=== PATIENT | male | born 1955 | race Caucasian/White ===

== ENCOUNTER 2022-12-05 02:56 | Emergency (ER) | payer MEDICARE ==
[~2022-12-05] VITALS: Ht 177.8 cm; Wt 109.1 kg
[2022-12-05 03:30] VITALS: BP 127/84
[2022-12-05] MEDS ORDERED: dexamethasone sod phosphate 10mg/ml inj IM STA (08:17)
[2022-12-05] MEDS ORDERED: clindamycin 150mg capsule PO ONE (08:20)
[2022-12-05] MEDS ORDERED: HYDROcodone/acetaminophen 10/325mg tab PO ONE (08:20)
[2022-12-05] MEDS ORDERED: HYDR-3965 PO ×2 (08:25→08:28)
[2022-12-05] MEDS ORDERED: CLIN150C2 PO ×2 (08:25→08:30)
== END 2022-12-05 08:39 | disposition home or self-care (01) ==
LOC: ER 02:59
DX: K04.7 Periapical abscess without sinus (principal); Z88.5 Allergy status to narcotic agent
CPT/HCPCS: 96372; 99283; J1100